=== PATIENT | female | born 1945 | race Caucasian/White ===

== ENCOUNTER 2017-10-18 07:40 | Day surgery (SDC) | payer MEDICARE, MEDICAID ==
[2017-10-14 14:12] LABS: BASOPHILS % (AUTO) 0.7 % (0-1); EOSINOPHILS # (AUTO) 0.1 X10'3 (0-0.9); EOSINOPHILS % (AUTO) 1.5 % (0-6); LYMPHOCYTES # (AUTO) 2.2 X10'3 (1.1-4.8); LYMPHOCYTES % (AUTO) 33.5 % (21-51); MEAN CORPUSCULAR HEMOGLOBIN 31.7 PG (27.0-31.0); MEAN CORPUSCULAR VOLUME 93.3 FL (78-98); MEAN PLATELET VOLUME 7.8 FL (7.4-10.4); MONOCYTES # (AUTO) 0.6 X10'3 (0-0.9); MONOCYTES % (AUTO) 9.3 % (2-12); NEUTROPHILS # (AUTO) 3.6 X10'3 (1.8-7.7); PRE OP HEMOGLOBIN 14.3 g/dL (12.0-16.0); PRE OP PLATELET COUNT 214 X10'3 (140-440); RED CELL DISTRIBUTION WIDTH 14.9 % (11.5-14.5)
[2017-10-14 14:21] LABS: ALBUMIN 3.8 G/DL (3.4-5.0); ALBUMIN/GLOBULIN RATIO 0.8 (1.1-1.5); ALKALINE PHOSPHATASE 73 IU/L (46-116); BLOOD UREA NITROGEN 12 MG/DL (7-18); BUN/CREATININE RATIO 14.1 (6.6-38.0); CALCIUM 8.5 MG/DL (8.5-10.1); CHLORIDE 98 MMOL/L (99-107); CREATININE 0.85 MG/DL (0.40-0.90); PRE OP ALT 65 U/L (30-65); PRE OP ANION GAP 6 (8-16); PRE OP AST 51 U/L (10-37); PRE OP BILIRUB, TOTAL 0.2 MG/DL (0.0-1.0); PRE OP GLUCOSE 96 MG/DL (70-104); PRE OP POTASSIUM 4.1 MMOL/L (3.4-5.1); PRE OP SODIUM 132 MMOL/L (135-145); TOTAL CARBON DIOXIDE 27.9 MMOL/L (24-32); TOTAL PROTEIN 8.3 G/DL (6.4-8.2); eGFR 66 ML/MIN
[2017-10-18] VITALS (7 sets, daily range): BP systolic 117–137; BP diastolic 76–89
[~2017-10-18] VITALS: Ht 154.9 cm; Wt 60.8 kg
[~2017-10-18 07:40] MED LIST: ALEN70TA3 PO; ATOR10TA87 PO; BUPIVAcaine/PF 2.5 mg/ml (0.25%) 30ml vial ONE; BUSP10TA11 PO; CETI-102 PO; CLON-527 PO; COL100C PO; CYCL1DRO EACHEYE; FLUT16SP2 BOTHNARES; FMLOS EACHEYE; GABA800T2 PO; HYDR-3972 PO; LUBI24CA5 PO; METF500T4 PO; MIRT15TA PO; NABU500T2 PO; PHEN100C12 PO; QUET200T30 PO; TOP100T PO; ceFAZolin inj. 1,000 MG in normal saline 100ml IV soln 100 ML IV ONE; famotidine 20mg tablet PO ONE; ringers solution, lacted 1,000 ML IV SCH
[2017-10-18] MEDS ORDERED: ringers solution, lacted 1,000 ML IV SCH (08:49)
[2017-10-18] MEDS ORDERED: proCHLORperazine 10 MG/2 ml inj IV PRN (08:50)
[2017-10-18] MEDS ORDERED: morphine 4 MG/ML inj SYRINge IV PRN ×2 (08:50)
[2017-10-18] MEDS ORDERED: meperidine/PF 50mg/ml syringe IV PRN ×3 (08:50)
[2017-10-18] MEDS ORDERED: LIDOcaine 0.5% (5mg/ml) 50ml vial ONE (08:59)
[2017-10-18] MEDS ORDERED: fentaNYL/PF 50MCG/1 ML 2ML syringe ONE (09:00)
[2017-10-18] MEDS ORDERED: midazolam 2 mg/2 ml injection ONE (09:02)
== END 2017-10-18 10:12 | disposition home or self-care (01) ==
LOC: PAS 07:40
PROVIDERS: ATTEND Orthopaedic Surgery Hand Surgery
DX: G56.02 Carpal tunnel syndrome, left upper limb (principal); Z79.899 Other long term (current) drug therapy; Z98.890 Other specified postprocedural states; Z87.891 Personal history of nicotine dependence; M19.90 Unspecified osteoarthritis, unspecified site; E11.9 Type 2 diabetes mellitus without complications; F41.8 Other specified anxiety disorders; Z85.828 Personal history of other malignant neoplasm of skin
CPT/HCPCS: 36415; 64721; 80053; 82948; 85025; A6222; A6449; J0690; J2001; J2250; J3010; J3490; J7030; J7120

== ENCOUNTER 2018-09-15 06:20 | Inpatient (IN) | payer MEDICARE, MEDICAID | END 2018-10-03 14:30 | disposition home or self-care (01) | LOC: ER 06:20 → ORTHO 4S 09-29 18:00 → ED HOLD 11:07 → PCU 3S 17:55 | DX: M48.56XA Collapsed vertebra, not elsewhere classified, lumbar region, initial encounter for fracture (principal); G92 Toxic encephalopathy; F20.2 Catatonic schizophrenia; E44.0 Moderate protein-calorie malnutrition; Z68.1 Body mass index [BMI] 19.9 or less, adult; N39.0 Urinary tract infection, site not specified; G40.909 Epilepsy, unspecified, not intractable, without status epilepticus; F03.90 Unspecified dementia, unspecified severity, without behavioral disturbance, psychotic disturbance, mood disturbance, and anxiety; I65.01 Occlusion and stenosis of right vertebral artery; F21 Schizotypal disorder; M06.9 Rheumatoid arthritis, unspecified; M48.00 Spinal stenosis, site unspecified ==

== ENCOUNTER 2019-05-09 15:18 | Emergency (ER) | payer MEDICARE, MEDICAID ==
[~2019-05-09] VITALS: Ht 154.9 cm; Wt 69.1 kg
[~2019-05-09 15:18] MED LIST changes: +ALEN35TA21 PO; -ALEN70TA3 PO; +ATOR10TA70 PO; -ATOR10TA87 PO; -BUPIVAcaine/PF 2.5 mg/ml (0.25%) 30ml vial ONE; -BUSP10TA11 PO; -CETI-102 PO; +CETI10TA14 PO; -CLON-527 PO; -COL100C PO; -CYCL1DRO EACHEYE; +CYCL1DRO2 EACHEYE; -FMLOS EACHEYE; -GABA800T2 PO; -HYDR-3972 PO; +LACT1CAP26 PO; +LIDO700A47 TP; +LISI-600 PO; -LUBI24CA5 PO; +METF-950 PO; -METF500T4 PO; -MIRT15TA PO; +MIRT15TA8 PO; -NABU500T2 PO; +NYSPWD TP; -PHEN100C12 PO; +PHEN125O3 PO; +PRAZ1CAP5 PO; -QUET200T30 PO; +QUET25TA34 PO; -TOP100T PO; +TOP25T PO; +[UNRECOGNIZED DRUG - CODE] PO; -ceFAZolin inj. 1,000 MG in normal saline 100ml IV soln 100 ML IV ONE; -famotidine 20mg tablet PO ONE; -ringers solution, lacted 1,000 ML IV SCH
[2019-05-09 16:08] VITALS: BP 154/90
== END 2019-05-09 16:10 | disposition home or self-care (01) ==
LOC: ER 15:22
DX: S10.83XA Contusion of other specified part of neck, initial encounter (principal); G89.29 Other chronic pain; R68.84 Jaw pain; E11.9 Type 2 diabetes mellitus without complications; Z90.49 Acquired absence of other specified parts of digestive tract; Z88.6 Allergy status to analgesic agent; Z79.899 Other long term (current) drug therapy; W06.XXXA Fall from bed, initial encounter; Y93.89 Activity, other specified; Y92.89 Other specified places as the place of occurrence of the external cause; Y99.9 Unspecified external cause status
CPT/HCPCS: 93005; 99283

== ENCOUNTER 2020-01-16 16:53 | Emergency (ER) | payer MEDICARE, MEDICAID ==
[~2020-01-16] VITALS: Ht 154.9 cm; Wt 77.5 kg
[2020-01-16] MEDS ORDERED: ondansetron 4mg rapidly disintigrating tab PO ONE (17:50)
[2020-01-16] MEDS ORDERED: HYDROcodone/acetaminophen 5mg/325mg tablet PO ONE (17:50)
[2020-01-16] MEDS ORDERED: ONDA4TAB6 PO (18:06)
[2020-01-16] MEDS ORDERED: HYDR-4383 PO (18:06)
[2020-01-16 18:16] VITALS: BP 147/82
== END 2020-01-16 18:17 | disposition home or self-care (01) ==
LOC: ER 16:53
DX: R07.81 Pleurodynia (principal); F03.90 Unspecified dementia, unspecified severity, without behavioral disturbance, psychotic disturbance, mood disturbance, and anxiety; E11.9 Type 2 diabetes mellitus without complications; F32.9 Major depressive disorder, single episode, unspecified; F20.9 Schizophrenia, unspecified; Z86.69 Personal history of other diseases of the nervous system and sense organs; Z90.49 Acquired absence of other specified parts of digestive tract; Z79.899 Other long term (current) drug therapy
CPT/HCPCS: 71046; 99284

== ENCOUNTER 2020-04-20 12:07 | Emergency (ER) | payer MEDICARE, MEDICAID ==
[~2020-04-20] VITALS: Ht 154.9 cm; Wt 76.0 kg
[~2020-04-20 12:07] MED LIST changes: +HYDR-4383 PO; +ONDA4TAB6 PO
[2020-04-20] MEDS ORDERED: normal saline 1000ML IV soln IVB ONE (14:05)
[2020-04-20] MEDS ORDERED: clindamycin phosphate inj 600 MG in normal saline 50ml IV soln 50 ML IV ONE (14:05)
[2020-04-20 14:35] LABS: BASOPHILS # (AUTO) 0.1 X10'3 (0-0.2); BASOPHILS % (AUTO) 0.6 % (0-1); EOSINOPHILS % (AUTO) 0.3 % (0-6); HEMATOCRIT 38.5 % (35.0-45.0); HEMOGLOBIN 12.8 g/dl (12.0-16.0); LYMPHOCYTES # (AUTO) 1.4 X10'3 (1.1-4.8); LYMPHOCYTES % (AUTO) 10.2 % (21-51); MEAN CORPUSCULAR HEMOGLOBIN 30.9 PG (27.0-31.0); MEAN CORPUSCULAR HGB CONC 33.2 g/dL (33.0-36.5); MEAN PLATELET VOLUME 8.1 FL (7.4-10.4); MONOCYTES # (AUTO) 1.5 X10'3 (0-0.9); MONOCYTES % (AUTO) 10.6 % (2-12); NEUTROPHILS # (AUTO) 10.8 X10'3 (1.8-7.7); NEUTROPHILS % (AUTO) 78.3 % (42-75); PLATELET COUNT 222 X10'3 (140-440); RED BLOOD COUNT 4.14 X10'6 (4.20-5.60); RED CELL DISTRIBUTION WIDTH 14.4 % (11.5-14.5); WHITE BLOOD COUNT 13.8 X10'3 (4.5-11.0)
[2020-04-20 14:49] LABS: ALANINE AMINOTRANSFERASE 57 U/L (12-78); ALBUMIN 3.5 G/DL (3.4-5.0); ALBUMIN/GLOBULIN RATIO 0.6 (1.1-1.5); ALKALINE PHOSPHATASE 128 IU/L (46-116); ANION GAP 11 (8-16); ASPARTATE AMINO TRANSFERASE 49 U/L (10-37); BILIRUBIN,TOTAL 0.7 MG/DL (0.1-1.0); BLOOD UREA NITROGEN 12 MG/DL (7-18); BUN/CREATININE RATIO 12.2 (6.6-38.0); CHLORIDE 96 MMOL/L (99-107); CREATININE 0.98 MG/DL (0.40-0.90); GLUCOSE 105 MG/DL (70-104); MAGNESIUM 2.1 MG/DL (1.5-2.4); POTASSIUM 3.4 MMOL/L (3.5-5.1); SODIUM 133 MMOL/L (135-145); TOTAL CARBON DIOXIDE 25.8 MMOL/L (24-32); TOTAL PROTEIN 8.9 G/DL (6.4-8.2); eGFR 56 ML/MIN
[2020-04-20] MEDS ORDERED: CLIN-97 PO (15:15)
[2020-04-20 15:42] VITALS: BP 134/83
[2020-04-22] MEDS ORDERED: ATOR40TA PO (21:53)
[2020-04-22] MEDS ORDERED: BUSP10TA11 PO (21:53)
[2020-04-22] MEDS ORDERED: MIRT45TA79 PO (21:53)
[2020-04-22] MEDS ORDERED: CYCL1DRO EACHEYE (21:53)
[2020-04-22] MEDS ORDERED: CITA20TA28 PO (21:53)
[2020-04-22] MEDS ORDERED: QUET-1 PO (21:53)
[2020-04-22] MEDS ORDERED: QUET25TA PO (21:53)
[2020-04-22] MEDS ORDERED: PHEN100C12 PO (21:53)
[2020-04-22] MEDS ORDERED: NABU500T2 PO (21:53)
[2020-04-22] MEDS ORDERED: ADV50100 IH (21:53)
[2020-04-22] MEDS ORDERED: GABA800T11 PO (21:53)
[2020-04-23] MEDS ORDERED: FLUT50DI NS (00:15)
[2020-04-23] MEDS ORDERED: FLUT16SP2 BOTHNARES (09:28)
== END 2020-04-20 15:54 | disposition home or self-care (01) ==
LOC: ER 12:07
DX: L03.313 Cellulitis of chest wall (principal); R51 Headache; E11.9 Type 2 diabetes mellitus without complications; F32.9 Major depressive disorder, single episode, unspecified; F20.9 Schizophrenia, unspecified; Z86.69 Personal history of other diseases of the nervous system and sense organs; Z90.49 Acquired absence of other specified parts of digestive tract; Z79.2 Long term (current) use of antibiotics; Z79.899 Other long term (current) drug therapy
CPT/HCPCS: 36415; 71045; 80053; 83605; 83735; 84145; 85025; 87040; 96365; 99284; J3490; J7030

== ENCOUNTER 2020-05-03 09:00 | Day surgery (SDC) | payer MEDICARE, MEDICAID ==
[~2020-05-03 09:00] MED LIST changes: -ATOR10TA70 PO; +ATOR40TA PO; +BUSP10TA11 PO; +CEPH250T PO; +CITA20TA28 PO; +GABA800T11 PO; -HYDR-4383 PO; -LIDO700A47 TP; -LISI-600 PO; +LISI10TA4 PO; -MIRT15TA8 PO; +MIRT45TA79 PO; +NABU500T2 PO; -NYSPWD TP; -ONDA4TAB6 PO; +PHEN100C12 PO; -PHEN125O3 PO; -PRAZ1CAP5 PO; +QUET25TA PO; -QUET25TA34 PO; -TOP25T PO; -[UNRECOGNIZED DRUG - CODE] PO
[2020-05-03] MEDS ORDERED: LIDOcaine 2% 5ml jelly ONE (09:40)
== END 2020-05-03 10:17 | disposition home or self-care (01) ==
LOC: WOUND CARE 09:00
PROVIDERS: ATTEND Registered Nurse General Practice
DX: N61.0 Mastitis without abscess (principal); T63.301A Toxic effect of unspecified spider venom, accidental (unintentional), initial encounter; E11.65 Type 2 diabetes mellitus with hyperglycemia; E78.5 Hyperlipidemia, unspecified; M81.0 Age-related osteoporosis without current pathological fracture; M19.90 Unspecified osteoarthritis, unspecified site; I10 Essential (primary) hypertension; G40.909 Epilepsy, unspecified, not intractable, without status epilepticus; F41.8 Other specified anxiety disorders; F32.9 Major depressive disorder, single episode, unspecified; F03.90 Unspecified dementia, unspecified severity, without behavioral disturbance, psychotic disturbance, mood disturbance, and anxiety; Z87.891 Personal history of nicotine dependence; Z79.2 Long term (current) use of antibiotics; Z79.899 Other long term (current) drug therapy; Z86.69 Personal history of other diseases of the nervous system and sense organs; Z90.49 Acquired absence of other specified parts of digestive tract; Y92.89 Other specified places as the place of occurrence of the external cause
CPT/HCPCS: 36416; 82948; 97597

== ENCOUNTER 2020-05-10 09:45 | Day surgery (SDC) | payer MEDICARE, MEDICAID ==
[~2020-05-10 09:45] MED LIST changes: -ALEN35TA21 PO; +ALEN35TA51 PO; +NABU-134 PO; -NABU500T2 PO
[2020-05-10] MEDS ORDERED: LIDOcaine 2% 5ml jelly ONE (10:03)
== END 2020-05-10 10:22 | disposition home or self-care (01) ==
LOC: WOUND CARE 09:45
PROVIDERS: ATTEND Nurse Practitioner
DX: L03.818 Cellulitis of other sites (principal); N61.0 Mastitis without abscess; E11.65 Type 2 diabetes mellitus with hyperglycemia; M81.0 Age-related osteoporosis without current pathological fracture; G40.909 Epilepsy, unspecified, not intractable, without status epilepticus; I10 Essential (primary) hypertension; E78.5 Hyperlipidemia, unspecified; M19.90 Unspecified osteoarthritis, unspecified site; F32.9 Major depressive disorder, single episode, unspecified; F41.8 Other specified anxiety disorders; F03.90 Unspecified dementia, unspecified severity, without behavioral disturbance, psychotic disturbance, mood disturbance, and anxiety; Z90.49 Acquired absence of other specified parts of digestive tract; Z79.899 Other long term (current) drug therapy; Z87.891 Personal history of nicotine dependence; Z86.69 Personal history of other diseases of the nervous system and sense organs; Z79.2 Long term (current) use of antibiotics; Z86.19 Personal history of other infectious and parasitic diseases
CPT/HCPCS: 36416; 82948; 97597

== ENCOUNTER 2020-05-17 09:52 | Day surgery (SDC) | payer MEDICARE, MEDICAID ==
[2020-05-17] MEDS ORDERED: LIDOcaine 2% 5ml jelly ONE (10:29)
== END 2020-05-17 11:30 | disposition home or self-care (01) ==
LOC: WOUND CARE 09:52
PROVIDERS: ATTEND Nurse Practitioner
DX: N61.0 Mastitis without abscess (principal); E11.65 Type 2 diabetes mellitus with hyperglycemia; L03.818 Cellulitis of other sites; M81.0 Age-related osteoporosis without current pathological fracture; G40.909 Epilepsy, unspecified, not intractable, without status epilepticus; I10 Essential (primary) hypertension; E78.5 Hyperlipidemia, unspecified; M19.90 Unspecified osteoarthritis, unspecified site; F32.9 Major depressive disorder, single episode, unspecified; F41.8 Other specified anxiety disorders; F03.90 Unspecified dementia, unspecified severity, without behavioral disturbance, psychotic disturbance, mood disturbance, and anxiety; F20.9 Schizophrenia, unspecified; Z90.49 Acquired absence of other specified parts of digestive tract; Z79.899 Other long term (current) drug therapy; Z87.891 Personal history of nicotine dependence; Z86.69 Personal history of other diseases of the nervous system and sense organs; Z79.2 Long term (current) use of antibiotics; Z86.19 Personal history of other infectious and parasitic diseases; Z79.84 Long term (current) use of oral hypoglycemic drugs
CPT/HCPCS: 36416; 82948; 97597

== ENCOUNTER 2020-05-24 10:42 | Outpatient (CLI) | payer MEDICARE, MEDICAID ==
[2020-05-24] MEDS ORDERED: LIDOcaine 2% 5ml jelly ONE (11:19)
== END 2020-05-24 23:59 | disposition home or self-care (01) ==
LOC: WOUND CARE 10:42
PROVIDERS: ATTEND Nurse Practitioner
DX: L03.818 Cellulitis of other sites (principal); N61.0 Mastitis without abscess; E11.65 Type 2 diabetes mellitus with hyperglycemia; M81.0 Age-related osteoporosis without current pathological fracture; G40.909 Epilepsy, unspecified, not intractable, without status epilepticus; I10 Essential (primary) hypertension; E78.5 Hyperlipidemia, unspecified; M19.90 Unspecified osteoarthritis, unspecified site; F32.9 Major depressive disorder, single episode, unspecified; F41.8 Other specified anxiety disorders; F03.90 Unspecified dementia, unspecified severity, without behavioral disturbance, psychotic disturbance, mood disturbance, and anxiety; Z90.49 Acquired absence of other specified parts of digestive tract; Z79.899 Other long term (current) drug therapy; Z87.891 Personal history of nicotine dependence; Z86.69 Personal history of other diseases of the nervous system and sense organs; Z79.2 Long term (current) use of antibiotics; Z86.19 Personal history of other infectious and parasitic diseases
CPT/HCPCS: 36416; 82948; 97597

== ENCOUNTER 2020-07-28 16:28 | Emergency (ER) | payer MEDICARE, MEDICAID ==
[~2020-07-28] VITALS: Ht 154.9 cm; Wt 73.0 kg
== END 2020-07-28 17:24 | disposition home or self-care (01) ==
LOC: ER 16:29
DX: J22 Unspecified acute lower respiratory infection (principal); R05 Cough; R09.89 Other specified symptoms and signs involving the circulatory and respiratory systems; R19.7 Diarrhea, unspecified; Z20.828 Contact with and (suspected) exposure to other viral communicable diseases; E11.9 Type 2 diabetes mellitus without complications; F32.9 Major depressive disorder, single episode, unspecified; F20.9 Schizophrenia, unspecified; Z86.69 Personal history of other diseases of the nervous system and sense organs; Z90.49 Acquired absence of other specified parts of digestive tract; Z79.2 Long term (current) use of antibiotics; Z79.899 Other long term (current) drug therapy
CPT/HCPCS: 36415; 87635; 99284

== ENCOUNTER 2021-04-06 13:10 | Outpatient (CLI) | payer MEDICARE, MEDICAID ==
[~2021-04-06 13:10] MED LIST changes: -ALEN35TA51 PO; +ALEN35TA53 PO; +LISI10TA27 PO; -LISI10TA4 PO; -NABU-134 PO; +NABU-139 PO
[2021-04-06] MEDS ORDERED: ATOR40TA71 PO (14:15)
[2021-04-06] MEDS ORDERED: ATOR40TA72 PO (14:15)
[2021-04-06] MEDS ORDERED: MIRT45TA79 PO (14:15)
[2021-04-06] MEDS ORDERED: QUET300T20 PO (14:15)
[2021-04-06] MEDS ORDERED: PHEN100C12 PO (14:15)
[2021-04-06] MEDS ORDERED: LISI20TA28 PO (14:15)
[2021-04-06] MEDS ORDERED: CITA20TA16 PO (14:15)
[2021-04-06] MEDS ORDERED: QUET50TA24 PO (14:15)
[2021-04-06] MEDS ORDERED: FLUT16SP BOTHNARES (14:15)
[2021-04-06] MEDS ORDERED: METF-436 PO (14:15)
[2021-04-06] MEDS ORDERED: CITA10TA14 PO (14:15)
[2021-04-06] MEDS ORDERED: ALEN35TA53 PO (14:15)
[2021-04-06] MEDS ORDERED: BUSP10TA10 PO (14:15)
[2021-04-06] MEDS ORDERED: GABA800T11 PO (14:15)
[2021-04-06] MEDS ORDERED: NABU-139 PO (14:15)
[2021-04-06 15:31] LABS: BASOPHILS # (AUTO) 0.1 X10'3 (0-0.2); EOSINOPHILS # (AUTO) 0.1 X10'3 (0-0.9); EOSINOPHILS % (AUTO) 1.7 % (0-6); LYMPHOCYTES # (AUTO) 1.9 X10'3 (1.1-4.8); LYMPHOCYTES % (AUTO) 31.9 % (21-51); MEAN CORPUSCULAR HEMOGLOBIN 31.1 PG (27.0-31.0); MEAN CORPUSCULAR HGB CONC 33.3 g/dL (33.0-36.5); MEAN CORPUSCULAR VOLUME 93.4 FL (78-98); MEAN PLATELET VOLUME 7.4 FL (7.4-10.4); MONOCYTES # (AUTO) 0.7 X10'3 (0-0.9); MONOCYTES % (AUTO) 12.5 % (2-12); NEUTROPHILS # (AUTO) 3.1 X10'3 (1.8-7.7); NEUTROPHILS % (AUTO) 52.9 % (42-75); PRE OP HEMATOCRIT 40.4 % (35.0-45.0); PRE OP HEMOGLOBIN 13.4 g/dL (12.0-16.0); PRE OP PLATELET COUNT 232 X10'3 (140-440); RED BLOOD COUNT 4.32 X10'6 (4.20-5.60); RED CELL DISTRIBUTION WIDTH 14.8 % (11.5-14.5)
[2021-04-06 15:46] LABS: ALBUMIN/GLOBULIN RATIO 0.8 (1.1-1.5); ALKALINE PHOSPHATASE 86 IU/L (46-116); BLOOD UREA NITROGEN 20 MG/DL (7-18); BUN/CREATININE RATIO 18.5 (6.6-38.0); CALCIUM 8.7 MG/DL (8.5-10.1); CHLORIDE 98 MMOL/L (99-107); CREATININE 1.08 MG/DL (0.40-0.90); PRE OP ALT 40 U/L (30-65); PRE OP ANION GAP 10 (8-16); PRE OP AST 38 U/L (10-37); PRE OP BILIRUB, TOTAL 0.3 MG/DL (0.0-1.0); PRE OP GLUCOSE 89 MG/DL (70-104); PRE OP POTASSIUM 4.4 MMOL/L (3.4-5.1); PRE OP SODIUM 134 MMOL/L (135-145); TOTAL CARBON DIOXIDE 25.7 MMOL/L (24-32); TOTAL PROTEIN 8.9 G/DL (6.4-8.2); eGFR 50 ML/MIN
[2021-04-06 15:48] LABS: HEMOGLOBIN A1C 5.3 % (4.5-6.2)
== END 2021-04-06 23:59 | disposition home or self-care (01) ==
LOC: PRE-OP 13:10 → EDSTATUS 05-12 12:00
PROVIDERS: ATTEND Orthopaedic Surgery
DX: Z01.818 Encounter for other preprocedural examination (principal); M17.11 Unilateral primary osteoarthritis, right knee; M54.32 Sciatica, left side; M19.012 Primary osteoarthritis, left shoulder; M19.011 Primary osteoarthritis, right shoulder; M19.071 Primary osteoarthritis, right ankle and foot; M19.072 Primary osteoarthritis, left ankle and foot; E11.9 Type 2 diabetes mellitus without complications; E78.00 Pure hypercholesterolemia, unspecified; I10 Essential (primary) hypertension; E03.9 Hypothyroidism, unspecified; M06.9 Rheumatoid arthritis, unspecified; Z79.84 Long term (current) use of oral hypoglycemic drugs; Z79.899 Other long term (current) drug therapy; Z20.822 Contact with and (suspected) exposure to COVID-19; Z88.8 Allergy status to other drugs, medicaments and biological substances; Z87.891 Personal history of nicotine dependence; Z82.61 Family history of arthritis; Z82.49 Family history of ischemic heart disease and other diseases of the circulatory system
CPT/HCPCS: 36415; 80053; 83036; 85025; 87081; U0003; U0005

== ENCOUNTER 2021-06-20 16:11 | Emergency (ER) | payer MEDICARE, MEDICAID ==
[~2021-06-20] VITALS: Ht 154.9 cm; Wt 74.5 kg
[~2021-06-20 16:11] MED LIST changes: -ATOR40TA PO; +ATOR40TA71 PO; -CEPH250T PO; +CITA10TA14 PO; -CITA20TA28 PO; -LACT1CAP26 PO; -LISI10TA27 PO; +LISI20TA28 PO; +METF-1203 PO; -METF-950 PO; -QUET25TA PO; +QUET300T20 PO; +QUET50TA24 PO
[2021-06-20 16:43] VITALS: BP 143/86
== END 2021-06-20 18:09 | disposition home or self-care (01) ==
LOC: ER 16:12
DX: J06.9 Acute upper respiratory infection, unspecified (principal); Z20.822 Contact with and (suspected) exposure to COVID-19; R05.9 Cough, unspecified; R43.8 Other disturbances of smell and taste; E11.9 Type 2 diabetes mellitus without complications; F32.9 Major depressive disorder, single episode, unspecified; F20.9 Schizophrenia, unspecified; Z86.69 Personal history of other diseases of the nervous system and sense organs; Z90.49 Acquired absence of other specified parts of digestive tract; Z79.899 Other long term (current) drug therapy
CPT/HCPCS: 87635; 99283; C9803

== ENCOUNTER 2022-04-13 19:49 | Emergency (ER) | payer MEDICARE, MEDICAID ==
[~2022-04-13] VITALS: Ht 154.9 cm; Wt 77.3 kg
[2022-04-13 20:18] VITALS: BP 155/94
[2022-04-13] MEDS ORDERED: HYDROcodone/acetaminophen 5mg/325mg tablet PO ONE (21:40)
[2022-04-13] MEDS ORDERED: cyclobenzaprine 10mg tablet PO ONE (21:40)
[2022-04-13] MEDS ORDERED: CYCL-1 PO (21:41)
[2022-04-13] MEDS ORDERED: LIDO700A32 TOP (21:41)
[2022-04-13] MEDS ORDERED: LIDOcaine 5% patch TP STA (21:42)
== END 2022-04-13 22:05 | disposition home or self-care (01) ==
LOC: ER 19:50
DX: G89.29 Other chronic pain (principal); M54.50 Low back pain, unspecified; M62.830 Muscle spasm of back; E11.9 Type 2 diabetes mellitus without complications; Z90.49 Acquired absence of other specified parts of digestive tract
CPT/HCPCS: 99284

== ENCOUNTER 2022-09-25 21:50 | Emergency (ER) | payer MEDICARE, MEDICAID ==
[~2022-09-25] VITALS: Ht 154.9 cm; Wt 72.3 kg
[~2022-09-25 21:50] MED LIST changes: +CYCL-1 PO; +LIDO700A32 TOP
[2022-09-25 22:16] LABS: BASOPHILS # (AUTO) 0.1 X10'3 (0-0.2); BASOPHILS % (AUTO) 1.2 % (0-1); EOSINOPHILS # (AUTO) 0.1 X10'3 (0-0.9); HEMATOCRIT 35.4 % (35.0-45.0); HEMOGLOBIN 11.8 g/dl (12.0-16.0); LYMPHOCYTES % (AUTO) 32.1 % (21-51); MEAN CORPUSCULAR HEMOGLOBIN 30.5 PG (27.0-31.0); MEAN CORPUSCULAR HGB CONC 33.4 g/dL (33.0-36.5); MEAN CORPUSCULAR VOLUME 91.3 FL (78-98); MEAN PLATELET VOLUME 6.9 FL (7.4-10.4); MONOCYTES # (AUTO) 0.9 X10'3 (0-0.9); MONOCYTES % (AUTO) 14.1 % (2-12); NEUTROPHILS # (AUTO) 3.2 X10'3 (1.8-7.7); NEUTROPHILS % (AUTO) 50.6 % (42-75); PLATELET COUNT 244 X10'3 (140-440); RED BLOOD COUNT 3.88 X10'6 (4.20-5.60); RED CELL DISTRIBUTION WIDTH 14.5 % (11.5-14.5); WHITE BLOOD COUNT 6.3 X10'3 (4.5-11.0)
[2022-09-25 22:29] LABS: ALANINE AMINOTRANSFERASE 41 U/L (12-78); ALBUMIN 3.5 G/DL (3.4-5.0); ALBUMIN/GLOBULIN RATIO 0.8 (1.1-1.5); ALKALINE PHOSPHATASE 97 IU/L (46-116); ANION GAP 8 (8-16); ASPARTATE AMINO TRANSFERASE 35 U/L (10-37); BILIRUBIN,TOTAL 0.2 MG/DL (0.1-1.0); BLOOD UREA NITROGEN 14 MG/DL (7-18); BUN/CREATININE RATIO 17.9 (6.6-38.0); CALCIUM 8.4 MG/DL (8.5-10.1); CHLORIDE 93 MMOL/L (99-107); CREATININE 0.78 MG/DL (0.40-0.90); GLUCOSE 126 MG/DL (70-104); LIPASE 178 U/L (73-393); POTASSIUM 4.3 MMOL/L (3.5-5.1); SODIUM 126 MMOL/L (135-145); TOTAL PROTEIN 7.7 G/DL (6.4-8.2); eGFR 72 ML/MIN
[2022-09-25] MEDS ORDERED: ondansetron/PF 4mg/2ml inj IV ONE (23:30)
[2022-09-25] MEDS ORDERED: normal saline 1000ML IV soln IVB ONE (23:30)
[2022-09-25] MEDS: morphine 4 MG/ML inj SYRINge IV PRN (23:44)
[2022-09-26 00:06] LABS: CLARITY,URINE CLEAR (Clear); COLOR,URINE STRAW (Yellow); GLUCOSE, URINE NEGATIVE (Neg); KETONES,URINE NEGATIVE (Neg); LEUKOCYTE ESTERASE ,URINE NEGATIVE (Neg); NITRITES, URINE NEGATIVE (Neg); OCCULT BLOOD,URINE TRACE-INTACT (Neg); PROTEIN,URINE NEGATIVE (Neg); UROBILINOGEN,URINE 0.2 E.U/dL (0.2-1.0)
[2022-09-26 00:09] LABS: UA COLLECTION TYPE FOLEY CATH
[2022-09-26 00:11] LABS: SQUAMOUS EPITHELIAL CELL,UR FEW /LPF (FEW)
[2022-09-26 00:12] LABS: BACTERIA,URINE NONE SEEN /HPF (Neg); RBC,URINE 0-2 /HPF (0-2); TRANSITIONAL EPI CELLS,URINE FEW /HPF; WBC,URINE NONE SEEN /HPF (0-4)
--- NOTE | 2022-09-26 00:13 | NUR ---
Patient to CT
--- NOTE | 2022-09-26 03:00 | NUR ---
breaking primary rn for lunch provided patient with eye mask and ear plugs
[2022-09-26] MEDS ORDERED: MAGN296S89 PO (03:46)
[2022-09-26] MEDS ORDERED: LACT10SO3 PO (03:46)
[2022-09-26] MEDS ORDERED: morphine 4 MG/ML inj SYRINge IV ONE (05:10)
[2022-09-26] MEDS ORDERED: ondansetron/PF 4mg/2ml inj IV ONE (05:10)
[2022-09-26] MEDS: morphine 4 MG/ML inj SYRINge IV PRN (05:16)
[2022-09-26 05:23] VITALS: BP 104/51
--- NOTE | 2022-09-26 05:27 | NUR ---
Per Dr. Cavazos give Morphine 2mg and Zofran 4mg.
== END 2022-09-26 05:37 | disposition home or self-care (01) ==
LOC: ER 21:50
DX: K59.00 Constipation, unspecified (principal); I10 Essential (primary) hypertension; G89.29 Other chronic pain; M54.9 Dorsalgia, unspecified; F31.9 Bipolar disorder, unspecified; F20.9 Schizophrenia, unspecified; E11.9 Type 2 diabetes mellitus without complications; Z79.899 Other long term (current) drug therapy; Z79.1 Long term (current) use of non-steroidal anti-inflammatories (NSAID); Z79.2 Long term (current) use of antibiotics
CPT/HCPCS: 36415; 72131; 74176; 80053; 81001; 83690; 85025; 96361; 96374; 96375; 96376; 99285; J2270; J2405; J7030; 30901; 51702; A4353

== ENCOUNTER 2023-11-19 22:34 | Inpatient (IN) | payer MEDICARE, MEDICAID ==
[~2023-11-19] VITALS: Ht 154.9 cm; Wt 61.3 kg
[~2023-11-19 22:34] MED LIST changes: +LACT10SO3 PO; +MAGN296S89 PO
[2023-11-20 00:41] LABS: BASOPHILS # (AUTO) 0.1 X10'3 (0-0.2); BASOPHILS % (AUTO) 0.8 % (0-1); EOSINOPHILS # (AUTO) 0.2 X10'3 (0-0.9); EOSINOPHILS % (AUTO) 2.5 % (0-6); HEMATOCRIT 32.6 % (35.0-45.0); HEMOGLOBIN 11.4 g/dl (12.0-16.0); LYMPHOCYTES # (AUTO) 1.7 X10'3 (1.1-4.8); MEAN CORPUSCULAR HEMOGLOBIN 31.9 PG (27.0-31.0); MEAN CORPUSCULAR HGB CONC 34.9 g/dL (33.0-36.5); MEAN CORPUSCULAR VOLUME 91.4 FL (78-98); MEAN PLATELET VOLUME 6.5 FL (7.4-10.4); MONOCYTES # (AUTO) 1.1 X10'3 (0-0.9); MONOCYTES % (AUTO) 15.3 % (2-12); NEUTROPHILS # (AUTO) 3.9 X10'3 (1.8-7.7); NEUTROPHILS % (AUTO) 56.4 % (42-75); PLATELET COUNT 241 X10'3 (140-440); RED BLOOD COUNT 3.57 X10'6 (4.20-5.60); RED CELL DISTRIBUTION WIDTH 14.5 % (11.5-14.5)
[2023-11-20] MEDS: normal saline 1000ML IV soln IVB ONE (00:51)
[2023-11-20] MEDS: TETanus/Pertussis (Acell)/Diphther VAC/PF (Tdap-Adult) 0.5ml syringe IMVAC ONE (00:52)
[2023-11-20 00:56] LABS: ALANINE AMINOTRANSFERASE 32 U/L (12-78); ALBUMIN 2.9 G/DL (3.4-5.0); ALBUMIN/GLOBULIN RATIO 0.6 (1.1-1.5); ALKALINE PHOSPHATASE 94 IU/L (46-116); ANION GAP 5 (8-16); ASPARTATE AMINO TRANSFERASE 32 U/L (10-37); BILIRUBIN,TOTAL 0.2 MG/DL (0.1-1.0); BLOOD UREA NITROGEN 10 MG/DL (7-18); BUN/CREATININE RATIO 12.5 (10.0-20.0); CALCIUM 8.2 MG/DL (8.5-10.1); CHLORIDE 93 MMOL/L (99-107); GLUCOSE 93 MG/DL (70-104); POTASSIUM 3.7 MMOL/L (3.5-5.1); SODIUM 127 MMOL/L (135-145); TOTAL CARBON DIOXIDE 28.8 MMOL/L (24-32); TOTAL PROTEIN 7.8 G/DL (6.4-8.2); eCRCL 45 ML/MIN; eGFR 70 ML/MIN
[2023-11-20 00:59] LABS: ETHANOL < 10 MG/DL (<10)
[2023-11-20] MEDS: ceFAZolin/D5W- 1GM premix 50 ML IV ONE (01:03)
[2023-11-20 01:12] LABS: TOTAL CELLS COUNTED 100
[2023-11-20 01:23] LABS: PLATELET ESTIMATE NORMAL
[2023-11-20 01:44] LABS: BILIRUBIN,URINE NEGATIVE (Neg); CLARITY,URINE CLEAR (Clear); COLOR,URINE YELLOW (Yellow); GLUCOSE, URINE NEGATIVE (Neg); KETONES,URINE NEGATIVE (Neg); LEUKOCYTE ESTERASE ,URINE NEGATIVE (Neg); NITRITES, URINE NEGATIVE (Neg); OCCULT BLOOD,URINE NEGATIVE (Neg); PROTEIN,URINE NEGATIVE (Neg); UROBILINOGEN,URINE 0.2 E.U/dL (0.2-1.0)
[2023-11-20 01:57] LABS: UA COLLECTION TYPE CLN CATCH MIDSTREAM
[2023-11-20 02:12] LABS: URINE AMPHETAMINE SCREEN NEGATIVE (Neg); URINE BARBITUATE SCREEN NEGATIVE (Neg); URINE BENZODIAZEPINES SCREEN NEGATIVE (Neg); URINE CANNABINOID SCREEN NEGATIVE (Neg); URINE COCAINE SCREEN NEGATIVE (Neg); URINE METHADONE SCREEN NEGATIVE (Neg); URINE OPIATE SCREEN NEGATIVE (Neg); URINE PHENCYCLIDINE SCREEN NEGATIVE (Neg)
[2023-11-20] MEDS: normal saline 1000ml 1,000 ML IV SCH (03:10)
[2023-11-20] MEDS ORDERED: mag hydrox/Alum hydrox/simeth 30ml oral suspension PO PRN (03:10)
[2023-11-20] MEDS ORDERED: magnesium hydroxide 30ml (MOM) UD suspension PO PRN (03:10)
[2023-11-20] MEDS ORDERED: magnesium Cl slow-release 64mg tablet PO PRN (03:10)
[2023-11-20] MEDS ORDERED: magnesium 4gm in 100ml NS 100 ML IV PRN (03:10)
[2023-11-20] MEDS ORDERED: potassium Cl 40MEQ/1/2NS 520ml 520 ML IV PRN (03:10)
[2023-11-20] MEDS ORDERED: magnesium 2GM in 50ml NS 50 ML IV PRN (03:10)
[2023-11-20] MEDS ORDERED: acetaminophen 325mg tablet PO PRN (03:10)
[2023-11-20] MEDS ORDERED: potassium Cl 20 mEq SR tablet PO PRN ×2 (03:10)
[2023-11-20 03:42] LABS: HEMOGLOBIN A1C 6.1 % (4.5-6.2)
[2023-11-20 03:49] LABS: OSMOLALITY UA 138 MOSM/K (50-1400)
[2023-11-20 04:00] LABS: SODIUM,URINE RANDOM 17 MEQ/L
[2023-11-20] MEDS: K and/or MAG REPLACEMENT MC SCH (07:41)
[2023-11-20] MEDS: ondansetron/PF 4mg/2ml inj IV PRN (08:20)
[2023-11-20] MEDS: morphine 2 MG/ML inj. syringe IV PRN (08:20)
[2023-11-20] MEDS: docusate sod 100mg capsule PO SCH (08:20)
[2023-11-20] MEDS ORDERED: non-formulary drug (Alendronate Sodium 1 TAB) PO SCH (17:55)
[2023-11-20] MEDS ORDERED: QUEtiapine 25mg tablet PO PRN (17:55)
[2023-11-20] MEDS: lisinopril 20mg tablet PO SCH (18:06)
[2023-11-20] MEDS: CITALOpram 10mg tablet PO SCH (18:07)
[2023-11-20] MEDS: enoxaparin 40mg/0.4ml syringe SQ SCH (19:38)
[2023-11-20] MEDS: quetiapine fumarate ER 300mg tablet PO ONE (19:39)
[2023-11-20] MEDS: mirtazapine 15mg tablet PO ONE (19:39)
[2023-11-20] MEDS: busPIRone 5mg tablet PO SCH (21:11)
[2023-11-20] MEDS: atorvastatin 20mg tablet PO SCH (21:11)
[2023-11-20] MEDS: phenytoin sod ER 100mg capsule PO SCH (21:39)
[2023-11-20 23:00] VITALS: BP 191/89; PULSE 103; RESP 14; TEMP 98.3; O2SAT 96
[2023-11-21 00:12] VITALS: RESP 16; O2SAT 96
[2023-11-21] MEDS: gabapentin 400mg capsule PO SCH (00:27)
[2023-11-21 06:38] VITALS: BP 94/44; PULSE 84; RESP 16; TEMP 97.3; O2SAT 92
[2023-11-21 07:31] LABS: BASOPHILS % (AUTO) 0.6 % (0-1); EOSINOPHILS # (AUTO) 0.1 X10'3 (0-0.9); EOSINOPHILS % (AUTO) 1.3 % (0-6); HEMATOCRIT 31.5 % (35.0-45.0); HEMOGLOBIN 10.8 g/dl (12.0-16.0); LYMPHOCYTES # (AUTO) 1.9 X10'3 (1.1-4.8); LYMPHOCYTES % (AUTO) 26.1 % (21-51); MEAN CORPUSCULAR HEMOGLOBIN 31.4 PG (27.0-31.0); MEAN CORPUSCULAR HGB CONC 34.3 g/dL (33.0-36.5); MEAN CORPUSCULAR VOLUME 91.6 FL (78-98); MEAN PLATELET VOLUME 7.4 FL (7.4-10.4); MONOCYTES # (AUTO) 1.2 X10'3 (0-0.9); PLATELET COUNT 237 X10'3 (140-440); RED BLOOD COUNT 3.44 X10'6 (4.20-5.60); RED CELL DISTRIBUTION WIDTH 14.3 % (11.5-14.5); WHITE BLOOD COUNT 7.2 X10'3 (4.5-11.0)
[2023-11-21 07:49] LABS: ALBUMIN 2.5 G/DL (3.4-5.0); ANION GAP 6 (8-16); BLOOD UREA NITROGEN 8 MG/DL (7-18); BUN/CREATININE RATIO 11.9 (10.0-20.0); CALCIUM 7.8 MG/DL (8.5-10.1); CHLORIDE 99 MMOL/L (99-107); CREATININE 0.67 MG/DL (0.40-0.90); GLUCOSE 90 MG/DL (70-104); SODIUM 132 MMOL/L (135-145); TOTAL CARBON DIOXIDE 26.9 MMOL/L (24-32); eCRCL 54 ML/MIN; eGFR 86 ML/MIN
[2023-11-21 08:00] VITALS: BP_SYST 126; BP_SYST 92; BP_SYST 99; BP_DIAS 55; BP_DIAS 57; BP_DIAS 67; PULSE 80; PULSE 82; PULSE 85; RESP 16; O2SAT 92
[2023-11-21] MEDS: fluticasone nasal spray 16GM bottle NS SCH (08:00)
[2023-11-21 08:55] LABS: PLATELET ESTIMATE NORMAL; TOTAL CELLS COUNTED 100
[2023-11-21 10:00] VITALS: BP 126/55; PULSE 71; RESP 16; TEMP 98.6; O2SAT 96
[2023-11-21 10:54] VITALS: RESP 16; O2SAT 96
[2023-11-21 11:53] VITALS: RESP 17
[2023-11-21] MEDS ORDERED: mirtazapine 15mg tablet PO SCH (21:00)
[2023-11-21] MEDS ORDERED: quetiapine fumarate ER 300mg tablet PO SCH (21:00)
== END 2023-11-21 12:45 | disposition home health service (06) | DRG 605 ==
LOC: ER 22:35 → UNDOADMIN 11-20 03:17 → ED HOLD 11-20 03:17 → EDBEDREQ 11-20 20:27 → ORTHO 4S 11-20 20:43
PROVIDERS: ADMIT Internal Medicine Critical Care Medicine; ATTEND Internal Medicine
DX: S01.01XA Laceration without foreign body of scalp, initial encounter (principal); E87.1 Hypo-osmolality and hyponatremia; E11.9 Type 2 diabetes mellitus without complications; F20.9 Schizophrenia, unspecified; F31.9 Bipolar disorder, unspecified; F41.9 Anxiety disorder, unspecified; M62.838 Other muscle spasm; K59.00 Constipation, unspecified; I10 Essential (primary) hypertension; G89.29 Other chronic pain; E78.5 Hyperlipidemia, unspecified; F03.90 Unspecified dementia, unspecified severity, without behavioral disturbance, psychotic disturbance, mood disturbance, and anxiety; G40.909 Epilepsy, unspecified, not intractable, without status epilepticus; W18.39XA Other fall on same level, initial encounter; M54.9 Dorsalgia, unspecified; Z79.84 Long term (current) use of oral hypoglycemic drugs; Z79.899 Other long term (current) drug therapy; Z90.49 Acquired absence of other specified parts of digestive tract; Y93.89 Activity, other specified; Y92.89 Other specified places as the place of occurrence of the external cause; Y99.8 Other external cause status
CPT/HCPCS: 36415; 70450; 71045; 72125; 80048; 80053; 80305; 80320; 81003; 82948; 83036; 83930; 83935; 84300; 84484; 85007; 85025; 87081; 90471; 90715; 93005; 96365; 97161; 97530; 99285; A6449; G0378; J0690; J1650; J2270; J2405; J7030

== ENCOUNTER 2024-02-06 19:30 | Emergency (ER) | payer MEDICARE, MEDICAID ==
[~2024-02-06] VITALS: Ht 157.5 cm; Wt 57.7 kg
[~2024-02-06 19:30] MED LIST changes: -CYCL-1 PO
[2024-02-06 20:03] LABS: BASOPHILS % (AUTO) 0.5 % (0-1); EOSINOPHILS % (AUTO) 0.1 % (0-6); HEMATOCRIT 36.9 % (35.0-45.0); HEMOGLOBIN 12.7 g/dl (12.0-16.0); LYMPHOCYTES # (AUTO) 1.2 X10'3 (1.1-4.8); LYMPHOCYTES % (AUTO) 11.4 % (21-51); MEAN CORPUSCULAR HEMOGLOBIN 31.5 PG (27.0-31.0); MEAN CORPUSCULAR HGB CONC 34.4 g/dL (33.0-36.5); MEAN CORPUSCULAR VOLUME 91.4 FL (78-98); MEAN PLATELET VOLUME 6.8 FL (7.4-10.4); MONOCYTES # (AUTO) 0.9 X10'3 (0-0.9); MONOCYTES % (AUTO) 8.6 % (2-12); NEUTROPHILS # (AUTO) 8.3 X10'3 (1.8-7.7); NEUTROPHILS % (AUTO) 79.4 % (42-75); PLATELET COUNT 242 X10'3 (140-440); RED BLOOD COUNT 4.04 X10'6 (4.20-5.60); RED CELL DISTRIBUTION WIDTH 15.1 % (11.5-14.5); WHITE BLOOD COUNT 10.4 X10'3 (4.5-11.0)
[2024-02-06 20:19] LABS: ALANINE AMINOTRANSFERASE 48 U/L (12-78); ALBUMIN 3.4 G/DL (3.4-5.0); ALBUMIN/GLOBULIN RATIO 0.7 (1.1-1.5); ALKALINE PHOSPHATASE 94 IU/L (46-116); ANION GAP 11 (8-16); ASPARTATE AMINO TRANSFERASE 51 U/L (10-37); BILIRUBIN,TOTAL 0.5 MG/DL (0.1-1.0); BLOOD UREA NITROGEN 14 MG/DL (7-18); BUN/CREATININE RATIO 18.9 (10.0-20.0); CALCIUM 8.7 MG/DL (8.5-10.1); CHLORIDE 88 MMOL/L (99-107); CREATININE 0.74 MG/DL (0.40-0.90); GLUCOSE 132 MG/DL (70-104); SODIUM 123 MMOL/L (135-145); TOTAL CARBON DIOXIDE 24.1 MMOL/L (24-32); TOTAL PROTEIN 8.5 G/DL (6.4-8.2); eCRCL 51 ML/MIN; eGFR 76 ML/MIN
[2024-02-06 22:37] LABS: BILIRUBIN,URINE NEGATIVE (Neg); CLARITY,URINE SLIGHTLY CLOUDY (Clear); COLOR,URINE YELLOW (Yellow); GLUCOSE, URINE NEGATIVE (Neg); KETONES,URINE 40 mg/dl (Neg); LEUKOCYTE ESTERASE ,URINE NEGATIVE (Neg); NITRITES, URINE NEGATIVE (Neg); OCCULT BLOOD,URINE SMALL (Neg); PROTEIN,URINE 100 mg/dl (Neg); UROBILINOGEN,URINE 0.2 E.U/dL (0.2-1.0)
[2024-02-06 22:42] LABS: UA COLLECTION TYPE URINAL
[2024-02-06 22:47] LABS: BACTERIA,URINE 1+ /HPF (Neg); SQUAMOUS EPITHELIAL CELL,UR FEW /LPF (FEW); WBC,URINE 0-4 /HPF (0-4)
[2024-02-06 22:48] LABS: MUCUS STRANDS MODERATE /LPF (Neg); RENAL CELLS, URINE FEW /HPF; TRANSITIONAL EPI CELLS,URINE FEW /HPF
[2024-02-06 22:50] LABS: COARSE GRANULAR CAST 0-3 /LPF (NEGATIVE); STARCH,URINE FEW /HPF (NEGATIVE)
[2024-02-06 22:51] LABS: URINE AMPHETAMINE SCREEN NEGATIVE (Neg); URINE BARBITUATE SCREEN NEGATIVE (Neg); URINE BENZODIAZEPINES SCREEN NEGATIVE (Neg); URINE CANNABINOID SCREEN NEGATIVE (Neg); URINE COCAINE SCREEN NEGATIVE (Neg); URINE METHADONE SCREEN NEGATIVE (Neg); URINE OPIATE SCREEN POSITIVE (Neg); URINE PHENCYCLIDINE SCREEN NEGATIVE (Neg)
[2024-02-06] MEDS: acetaminophen 325mg tablet PO ONE (23:59)
[2024-02-07] MEDS: lisinopril 10 MG tablet PO ONE
[2024-02-07 08:01] VITALS: BP 164/85; PULSE 99; RESP 15; TEMP 98.3; O2SAT 98
== END 2024-02-07 08:05 | disposition home or self-care (01) ==
LOC: ER 19:30
DX: R40.4 Transient alteration of awareness (principal); I10 Essential (primary) hypertension; Z79.899 Other long term (current) drug therapy; Z90.49 Acquired absence of other specified parts of digestive tract
CPT/HCPCS: 36415; 71045; 80053; 80305; 80329; 81001; 82948; 85025; 99285

== ENCOUNTER 2024-06-26 19:35 | Emergency (ER) | payer MEDICARE, MEDICAID ==
[~2024-06-26] VITALS: Ht 156.2 cm; Wt 57.2 kg
[~2024-06-26 19:35] MED LIST changes: +GABA-1555 PO; -GABA800T11 PO; +LACT-373 PO; -LACT10SO3 PO
[2024-06-26] MEDS: ondansetron 4mg rapidly disintigrating tab PO ONE (21:08)
[2024-06-26] MEDS: HYDROcodone/acetaminophen 10/325mg tab PO ONE (21:08)
[2024-06-26] MEDS ORDERED: metoprolol tartrate 50mg tablet PO ONE (21:55)
[2024-06-26] MEDS: metoprolol tartrate 25mg tablet PO ONE (22:15)
[2024-06-26 22:22] VITALS: BP 154/82; PULSE 74; RESP 16; O2SAT 98
== END 2024-06-26 22:31 | disposition home or self-care (01) ==
LOC: ER 19:35
DX: S09.90XA Unspecified injury of head, initial encounter (principal); M54.50 Low back pain, unspecified; F03.92 Unspecified dementia, unspecified severity, with psychotic disturbance; I10 Essential (primary) hypertension; E11.9 Type 2 diabetes mellitus without complications; F20.9 Schizophrenia, unspecified; G89.29 Other chronic pain; Z79.899 Other long term (current) drug therapy; Z90.49 Acquired absence of other specified parts of digestive tract; W19.XXXA Unspecified fall, initial encounter; Y93.89 Activity, other specified; Y92.89 Other specified places as the place of occurrence of the external cause; Y99.8 Other external cause status
CPT/HCPCS: 70450; 72131; 99285

== ENCOUNTER 2024-07-15 06:18 | Inpatient (IN) | payer MEDICARE, MEDICAID ==
[~2024-07-15] VITALS: Ht 154.9 cm; Wt 61.0 kg
[2024-07-15] MEDS: normal saline 1000ml 1,000 ML IV ONE (06:57)
[2024-07-15] MEDS: LORazepam 2 mg/ml vial IV ONE (07:02)
[2024-07-15] MEDS: HYDROcodone/acetaminophen 10/325mg tab PO ONE (07:26)
[2024-07-15 07:29] LABS: BASOPHILS % (AUTO) 0.9 % (0-1); EOSINOPHILS # (AUTO) 0.1 X10'3 (0-0.9); EOSINOPHILS % (AUTO) 1.5 % (0-6); HEMATOCRIT 33.7 % (35.0-45.0); HEMOGLOBIN 11.5 g/dl (12.0-16.0); LYMPHOCYTES # (AUTO) 1.7 X10'3 (1.1-4.8); LYMPHOCYTES % (AUTO) 36.1 % (21-51); MEAN CORPUSCULAR HEMOGLOBIN 31.1 PG (27.0-31.0); MEAN CORPUSCULAR HGB CONC 34.2 g/dL (33.0-36.5); MEAN PLATELET VOLUME 7.5 FL (7.4-10.4); MONOCYTES # (AUTO) 0.7 X10'3 (0-0.9); MONOCYTES % (AUTO) 14.9 % (2-12); NEUTROPHILS # (AUTO) 2.1 X10'3 (1.8-7.7); NEUTROPHILS % (AUTO) 46.6 % (42-75); PLATELET COUNT 158 X10'3 (140-440); RED CELL DISTRIBUTION WIDTH 15.2 % (11.5-14.5); WHITE BLOOD COUNT 4.6 X10'3 (4.5-11.0)
[2024-07-15 08:16] LABS: ALBUMIN 3.8 G/DL (3.4-5.0); ANION GAP 8 (8-16); BLOOD UREA NITROGEN 21 MG/DL (7-18); BUN/CREATININE RATIO 20.6 (10.0-20.0); CALCIUM 8.4 MG/DL (8.5-10.1); CHLORIDE 86 MMOL/L (99-107); CREATININE 1.02 MG/DL (0.40-0.90); GLUCOSE 108 MG/DL (70-104); LIPASE 71 U/L (16-77); MAGNESIUM 1.7 MG/DL (1.5-2.4); TOTAL CARBON DIOXIDE 25.2 MMOL/L (24-32); eCRCL 35 ML/MIN; eGFR 53 ML/MIN
[2024-07-15 08:37] LABS: POTASSIUM 3.4 MMOL/L (3.5-5.1)
[2024-07-15 08:44] LABS: SODIUM 119 MMOL/L (135-145)
[2024-07-15] MEDS ORDERED: potassium Cl 20 mEq SR tablet PO PRN (11:55)
[2024-07-15] MEDS ORDERED: potassium Cl 40MEQ/1/2NS 520ml 520 ML IV PRN (11:55)
[2024-07-15] MEDS ORDERED: acetaminophen 325mg tablet PO PRN ×2 (11:55)
[2024-07-15] MEDS ORDERED: bisacodyl 10mg suppository rectal RC PRN (11:55)
[2024-07-15] MEDS ORDERED: magnesium sulf-water 2g/50mL 50 ML IV PRN (11:55)
[2024-07-15] MEDS ORDERED: magnesium sulf-water 4G/100mL 100 ML IV PRN (11:55)
[2024-07-15] MEDS: HYDROcodone/acetaminophen 10/325mg tab PO PRN (14:10)
[2024-07-15 15:47] LABS: ALBUMIN 4.1 G/DL (3.4-5.0); ANION GAP 5 (8-16); BLOOD UREA NITROGEN 16 MG/DL (7-18); CHLORIDE 92 MMOL/L (99-107); CREATININE 0.94 MG/DL (0.40-0.90); GLUCOSE 99 MG/DL (70-104); POTASSIUM 3.5 MMOL/L (3.5-5.1); SODIUM 124 MMOL/L (135-145); TOTAL CARBON DIOXIDE 27.5 MMOL/L (24-32); eCRCL 38 ML/MIN; eGFR 58 ML/MIN
[2024-07-15 15:53] LABS: OSMOLALITY 275 MOSM/K (280-300)
[2024-07-15] MEDS: K and/or MAG REPLACEMENT MC SCH (20:00)
[2024-07-15] MEDS: docusate sod 100mg capsule PO SCH (20:00)
[2024-07-15 22:00] VITALS: BP 156/69; PULSE 85; RESP 16; TEMP 98.2; O2SAT 95
[2024-07-15] MEDS ORDERED: hydrALAZINE 20mg/ml inj. IV PRN (22:00)
[2024-07-15] MEDS: enoxaparin 40mg/0.4ml syringe SQ SCH (23:10)
[2024-07-15] MEDS: normal saline 1000ml 1,000 ML IV SCH (23:12)
[2024-07-15] MEDS ORDERED: DENO60DI SUBCUT (23:50)
[2024-07-15] MEDS ORDERED: CITA20TA17 PO (23:58)
[2024-07-16] MEDS ORDERED: LISI1TAB51 PO (00:05)
[2024-07-16 05:25] LABS: BASOPHILS # (AUTO) 0.1 X10'3 (0-0.2); EOSINOPHILS # (AUTO) 0.1 X10'3 (0-0.9); EOSINOPHILS % (AUTO) 1.1 % (0-6); HEMATOCRIT 34.9 % (35.0-45.0); HEMOGLOBIN 12.1 g/dl (12.0-16.0); LYMPHOCYTES # (AUTO) 1.7 X10'3 (1.1-4.8); LYMPHOCYTES % (AUTO) 27.8 % (21-51); MEAN CORPUSCULAR HEMOGLOBIN 31.7 PG (27.0-31.0); MEAN CORPUSCULAR HGB CONC 34.8 g/dL (33.0-36.5); MEAN CORPUSCULAR VOLUME 91.3 FL (78-98); MEAN PLATELET VOLUME 7.3 FL (7.4-10.4); MONOCYTES # (AUTO) 0.9 X10'3 (0-0.9); MONOCYTES % (AUTO) 14.4 % (2-12); NEUTROPHILS # (AUTO) 3.4 X10'3 (1.8-7.7); NEUTROPHILS % (AUTO) 55.7 % (42-75); PLATELET COUNT 214 X10'3 (140-440); RED BLOOD COUNT 3.82 X10'6 (4.20-5.60); RED CELL DISTRIBUTION WIDTH 15.4 % (11.5-14.5)
[2024-07-16 05:37] LABS: HEMOGLOBIN A1C 5.8 % (4.5-6.2)
[2024-07-16 05:54] LABS: ALANINE AMINOTRANSFERASE 19 U/L (12-78); ALBUMIN 3.5 G/DL (3.4-5.0); ALBUMIN/GLOBULIN RATIO 0.8 (1.1-1.5); ALKALINE PHOSPHATASE 53 IU/L (46-116); ANION GAP 9 (8-16); ASPARTATE AMINO TRANSFERASE 21 U/L (10-37); BILIRUBIN,TOTAL 0.5 MG/DL (0.1-1.0); BLOOD UREA NITROGEN 15 MG/DL (7-18); BUN/CREATININE RATIO 21.4 (10.0-20.0); CALCIUM 8.7 MG/DL (8.5-10.1); CHLORIDE 96 MMOL/L (99-107); GLUCOSE 107 MG/DL (70-104); MAGNESIUM 1.8 MG/DL (1.5-2.4); POTASSIUM 3.2 MMOL/L (3.5-5.1); SODIUM 131 MMOL/L (135-145); TOTAL CARBON DIOXIDE 26.2 MMOL/L (24-32); TOTAL PROTEIN 7.7 G/DL (6.4-8.2); eCRCL 51 ML/MIN; eGFR 81 ML/MIN
[2024-07-16 06:00] VITALS: BP 169/86; PULSE 83; RESP 15; TEMP 98.9; O2SAT 94
[2024-07-16] MEDS: potassium Cl 20 mEq SR tablet PO PRN (08:50)
[2024-07-16] MEDS: HYDROcodone/acetaminophen 5mg/325mg tablet PO PRN (09:42)
[2024-07-16 10:00] VITALS: BP 154/72; PULSE 80; RESP 14; TEMP 97.8; O2SAT 94
[2024-07-16] MEDS ORDERED: HYDR-3964 PO (15:46)
[2024-07-16] MEDS ORDERED: glucagon, human recombinant 1mg kit SUBCUT PRN (16:15)
[2024-07-16] MEDS ORDERED: cetirizine 10mg tablet PO PRN (16:15)
[2024-07-16] MEDS: magnesium citrate 296ml oral solution PO ONE (16:15)
[2024-07-16] MEDS ORDERED: dextrose 50%-water 50ml dispensing syringe IV PRN ×2 (16:15)
[2024-07-16] MEDS ORDERED: DEXTROSE 15 GM of carb/4 tabs (each vial/BOTTLE has 4 tablets) PO PRN ×2 (16:15)
[2024-07-16] MEDS: INSULIN LISPRO 100 UNIT/ML INSULN.PEN MULTI-DOSE SQ SCH (17:00)
[2024-07-16 18:00] VITALS: BP 172/97; PULSE 104; RESP 18; TEMP 97.9; O2SAT 98
[2024-07-16] MEDS: cycloSPORINE 0.05% ophthalmic emulsion EACHEYE SCH (20:31)
[2024-07-16] MEDS: mirtazapine 15mg tablet PO SCH (20:32)
[2024-07-16] MEDS: busPIRone 5mg tablet PO SCH (20:32)
[2024-07-16] MEDS: citalopram 20mg tablet PO SCH (20:32)
[2024-07-16] MEDS: atorvastatin 20mg tablet PO SCH (20:32)
[2024-07-16] MEDS: quetiapine 100mg tablet PO SCH (20:33)
[2024-07-16] MEDS: mag hydrox/Alum hydrox/simeth 30ml oral suspension PO PRN (20:34)
[2024-07-16 22:00] VITALS: BP 152/63; PULSE 94; RESP 17; TEMP 97; O2SAT 96
[2024-07-16] MEDS: gabapentin 400mg capsule PO SCH (23:02)
[2024-07-16] MEDS: ondansetron/PF 4mg/2ml inj IV PRN (23:03)
[2024-07-17 06:00] VITALS: BP 152/71; PULSE 95; RESP 16; TEMP 97.3; O2SAT 95
[2024-07-17] MEDS: LIDOcaine 5% patch TP SCH (07:20)
[2024-07-17] MEDS: metFORMIN 500mg tablet PO SCH (07:20)
[2024-07-17] MEDS: HYDROchlorothiazide 12.5mg capsule PO SCH (07:20)
[2024-07-17] MEDS: lisinopril 20mg tablet PO SCH (07:21)
[2024-07-17] MEDS: fluticasone nasal spray 16GM bottle NS SCH (07:21)
[2024-07-17 07:26] LABS: BASOPHILS % (AUTO) 0.4 % (0-1); EOSINOPHILS % (AUTO) 0 % (0-6); HEMOGLOBIN 12.5 g/dl (12.0-16.0); LYMPHOCYTES # (AUTO) 2.3 X10'3 (1.1-4.8); MEAN CORPUSCULAR HEMOGLOBIN 31.5 PG (27.0-31.0); MEAN CORPUSCULAR HGB CONC 34.6 g/dL (33.0-36.5); MEAN CORPUSCULAR VOLUME 91.1 FL (78-98); MEAN PLATELET VOLUME 7.1 FL (7.4-10.4); MONOCYTES # (AUTO) 0.6 X10'3 (0-0.9); MONOCYTES % (AUTO) 10.1 % (2-12); NEUTROPHILS # (AUTO) 3.5 X10'3 (1.8-7.7); NEUTROPHILS % (AUTO) 54.5 % (42-75); PLATELET COUNT 228 X10'3 (140-440); RED BLOOD COUNT 3.96 X10'6 (4.20-5.60); RED CELL DISTRIBUTION WIDTH 15.9 % (11.5-14.5); WHITE BLOOD COUNT 6.4 X10'3 (4.5-11.0)
[2024-07-17 07:53] LABS: ALANINE AMINOTRANSFERASE 20 U/L (12-78); ALBUMIN 3.9 G/DL (3.4-5.0); ALBUMIN/GLOBULIN RATIO 0.8 (1.1-1.5); ALKALINE PHOSPHATASE 55 IU/L (46-116); ANION GAP 7 (8-16); ASPARTATE AMINO TRANSFERASE 24 U/L (10-37); BILIRUBIN,TOTAL 0.7 MG/DL (0.1-1.0); BLOOD UREA NITROGEN 17 MG/DL (7-18); BUN/CREATININE RATIO 17.3 (10.0-20.0); CALCIUM 8.7 MG/DL (8.5-10.1); CHLORIDE 96 MMOL/L (99-107); CREATININE 0.98 MG/DL (0.40-0.90); GLUCOSE 118 MG/DL (70-104); POTASSIUM 4.1 MMOL/L (3.5-5.1); SODIUM 132 MMOL/L (135-145); TOTAL PROTEIN 8.6 G/DL (6.4-8.2); eCRCL 36 ML/MIN; eGFR 55 ML/MIN
[2024-07-17 08:00] VITALS: RESP 16; O2SAT 95
[2024-07-17 10:00] VITALS: BP 147/71; PULSE 86; RESP 16; TEMP 98.4; O2SAT 99
[2024-07-17] MEDS: QUEtiapine 25mg tablet PO PRN (12:11)
[2024-07-17 13:12] VITALS: RESP 18
== END 2024-07-17 16:00 | disposition home health service (06) | DRG 640 ==
LOC: ER 06:19 → ED HOLD 12:02 → ORTHO 4S 18:36
PROVIDERS: ADMIT Family Medicine; ATTEND Family Medicine
DX: E87.1 Hypo-osmolality and hyponatremia (principal); N17.0 Acute kidney failure with tubular necrosis; M48.56XA Collapsed vertebra, not elsewhere classified, lumbar region, initial encounter for fracture; E11.9 Type 2 diabetes mellitus without complications; I10 Essential (primary) hypertension; G40.909 Epilepsy, unspecified, not intractable, without status epilepticus; E78.5 Hyperlipidemia, unspecified; G89.29 Other chronic pain; M54.59 Other low back pain; F32.A Depression, unspecified; F03.90 Unspecified dementia, unspecified severity, without behavioral disturbance, psychotic disturbance, mood disturbance, and anxiety; M43.16 Spondylolisthesis, lumbar region; M48.07 Spinal stenosis, lumbosacral region; F20.9 Schizophrenia, unspecified; Z90.49 Acquired absence of other specified parts of digestive tract; Z85.828 Personal history of other malignant neoplasm of skin; Z87.891 Personal history of nicotine dependence
CPT/HCPCS: 36415; 71045; 72148; 72220; 80048; 80053; 82948; 83036; 83690; 83735; 83930; 84145; 85025; 87081; 93005; 97116; 97161; 97530; 99285; G0378; J1650; J1815; J2405; J7030

== ENCOUNTER 2024-08-16 21:31 | Emergency (ER) | payer MEDICARE, MEDICAID ==
[~2024-08-16] VITALS: Ht 154.9 cm; Wt 59.1 kg
[~2024-08-16 21:31] MED LIST changes: -ALEN35TA53 PO; -CITA10TA14 PO; +CITA20TA17 PO; +DENO60DI SUBCUT; +HYDR-3964 PO; -LACT-373 PO; +LISI1TAB51 PO; -LISI20TA28 PO; -NABU-139 PO; -PHEN100C12 PO
[2024-08-16] MEDS: HYDROcodone/acetaminophen 5mg/325mg tablet PO ONE (22:04)
[2024-08-16 22:34] VITALS: BP 179/99; PULSE 85; RESP 18; TEMP 98.9; O2SAT 98
== END 2024-08-16 22:36 | disposition home or self-care (01) ==
LOC: ER 21:32
DX: G89.29 Other chronic pain (principal); M54.59 Other low back pain; I10 Essential (primary) hypertension; E11.9 Type 2 diabetes mellitus without complications; F03.92 Unspecified dementia, unspecified severity, with psychotic disturbance; F20.9 Schizophrenia, unspecified; F32.A Depression, unspecified; Z90.49 Acquired absence of other specified parts of digestive tract; Z79.899 Other long term (current) drug therapy
CPT/HCPCS: 99283

== ENCOUNTER 2024-09-17 18:01 | Emergency (ER) | payer MEDICARE, MEDICAID ==
[~2024-09-17] VITALS: Ht 154.9 cm; Wt 61.0 kg
[2024-09-17 18:51] VITALS: O2SAT 97
[2024-09-17 18:56] LABS: BASOPHILS % (AUTO) 0.8 % (0-1); EOSINOPHILS # (AUTO) 0.1 X10'3 (0-0.9); EOSINOPHILS % (AUTO) 1.1 % (0-6); HEMATOCRIT 34.8 % (35.0-45.0); HEMOGLOBIN 12.1 g/dl (12.0-16.0); LYMPHOCYTES # (AUTO) 1.8 X10'3 (1.1-4.8); LYMPHOCYTES % (AUTO) 31.7 % (21-51); MEAN CORPUSCULAR HEMOGLOBIN 32.6 PG (27.0-31.0); MEAN CORPUSCULAR HGB CONC 34.8 g/dL (33.0-36.5); MEAN CORPUSCULAR VOLUME 93.6 FL (78-98); MEAN PLATELET VOLUME 7.3 FL (7.4-10.4); MONOCYTES # (AUTO) 0.6 X10'3 (0-0.9); MONOCYTES % (AUTO) 10.8 % (2-12); NEUTROPHILS # (AUTO) 3.2 X10'3 (1.8-7.7); NEUTROPHILS % (AUTO) 55.6 % (42-75); PLATELET COUNT 252 X10'3 (140-440); RED BLOOD COUNT 3.71 X10'6 (4.20-5.60); RED CELL DISTRIBUTION WIDTH 14.6 % (11.5-14.5); WHITE BLOOD COUNT 5.8 X10'3 (4.5-11.0)
[2024-09-17 19:14] LABS: ALANINE AMINOTRANSFERASE 15 U/L (12-78); ALBUMIN 4.1 G/DL (3.4-5.0); ALBUMIN/GLOBULIN RATIO 0.9 (1.1-1.5); ALKALINE PHOSPHATASE 46 IU/L (46-116); ANION GAP 5 (8-16); ASPARTATE AMINO TRANSFERASE 23 U/L (10-37); BILIRUBIN,TOTAL 0.5 MG/DL (0.1-1.0); BLOOD UREA NITROGEN 14 MG/DL (7-18); BUN/CREATININE RATIO 18.2 (10.0-20.0); CHLORIDE 90 MMOL/L (99-107); CREATININE 0.77 MG/DL (0.40-0.90); GLUCOSE 92 MG/DL (70-104); POTASSIUM 4.3 MMOL/L (3.5-5.1); SODIUM 122 MMOL/L (135-145); TOTAL CARBON DIOXIDE 27.2 MMOL/L (24-32); TOTAL PROTEIN 8.5 G/DL (6.4-8.2); eCRCL 46 ML/MIN; eGFR 73 ML/MIN
[2024-09-17 19:23] LABS: PRO BRAIN NATRIURETIC PEPTIDE 571 PG/ML (0-450)
[2024-09-17] MEDS: sodium chloride 1gm tablet PO ONE (19:34)
[2024-09-17] MEDS: HYDROcodone/acetaminophen 5mg/325mg tablet PO ONE (19:58)
[2024-09-17] MEDS ORDERED: SODI100035 PO (20:01)
[2024-09-17 20:22] VITALS: BP 203/103; PULSE 84; RESP 21; TEMP 98.1
== END 2024-09-17 20:36 | disposition home or self-care (01) ==
LOC: ER 18:02
DX: I10 Essential (primary) hypertension (principal); E87.1 Hypo-osmolality and hyponatremia; E11.9 Type 2 diabetes mellitus without complications; G89.29 Other chronic pain; F20.9 Schizophrenia, unspecified; Z79.899 Other long term (current) drug therapy; Z90.49 Acquired absence of other specified parts of digestive tract; Z95.0 Presence of cardiac pacemaker
CPT/HCPCS: 36415; 71045; 80053; 83880; 84484; 85025; 93005; 99285

== ENCOUNTER 2024-12-22 22:14 | Emergency (ER) | payer MEDICARE, MEDICAID ==
[~2024-12-22] VITALS: Ht 154.9 cm; Wt 66.0 kg
[~2024-12-22 22:14] MED LIST changes: +SODI100035 PO
--- NOTE | 2024-12-22 22:26 | ELECTROCARDIOGRAPH REPORT ---
[facility] Test Date: 2024-12-22 Test Time: 22:24:10 Pat Name: ADRIÁN MACDONALD Department: EMERGENCY ROOM Room: Gender: F Diver Helper: : 1945 Requested By: NEHEMIAS COSTELLO Order Number: [id number] Reading MD: Dr. Kalpesh Barr Measurements Intervals [place] Rate: 81 P: 39 AR: 184 QRS: -61 QRSD: 163 T: 97 QT: 433 QTc: 503 Interpretive Statements Sinus rhythm Probable left atrial enlargement Left bundle branch block Electronically Signed On 12-23-2024 6:32:[address] Kalpesh Barr Please click the below link to view image of tracing.
[2024-12-22 22:40] LABS: BASOPHILS % (AUTO) 0.5 % (0-1); EOSINOPHILS % (AUTO) 0.6 % (0-6); HEMATOCRIT 36.1 % (35.0-45.0); HEMOGLOBIN 12.7 g/dl (12.0-16.0); LYMPHOCYTES # (AUTO) 2.1 X10'3 (1.1-4.8); LYMPHOCYTES % (AUTO) 30.2 % (21-51); MEAN CORPUSCULAR HEMOGLOBIN 31.6 PG (27.0-31.0); MEAN CORPUSCULAR HGB CONC 35.1 g/dL (33.0-36.5); MEAN CORPUSCULAR VOLUME 90.1 FL (78-98); MEAN PLATELET VOLUME 7.7 FL (7.4-10.4); MONOCYTES % (AUTO) 14.2 % (2-12); NEUTROPHILS # (AUTO) 3.8 X10'3 (1.8-7.7); NEUTROPHILS % (AUTO) 54.5 % (42-75); PLATELET COUNT 195 X10'3 (140-440); RED CELL DISTRIBUTION WIDTH 14.1 % (11.5-14.5)
--- NOTE | 2024-12-22 22:45 | Physician Documentation ---
History of Present Illness ~ Chief Complaint: Dizziness Stated Complaint: DIZZINESS Time Seen by MD: 22:32 Primary Medical Doctor: HARRY Mode of Arrival: EMS HPI Patient presents to the emergency room with chief complaint of headache and high blood pressures. She was seen by physical therapist earlier today and was told that her blood pressure was high at 160. She also was not feeling very well at that time he has developed a headache which has since improved from a 9/10 to 2/10 currently. No fevers. Patient just had hydrochlorothiazide added to her lisinopril this past week by her primary care. She states her blood pressures typically range around 160 systolic. Medication Reconciliation Allergies: Coded Allergies: No Known Allergies (Unverified , 12/22/24) Scheduled Amlodipine Besylate (Amlodipine Besylate), 1 TAB PO DAILY Atorvastatin Calcium (Atorvastatin Calcium), 1 TABLET PO HS, (Reported) Buspirone Hcl* (Buspar*), 2 TAB PO TID, (Reported) Citalopram Hydrobromide (Citalopram HBr), 1 TAB PO HS, (Reported) Cyclosporine (Restasis), 1 DROP EACHEYE BID, (Reported) Denosumab (Prolia), 1 SYR SUBCUT [id number], (Reported) Fluticasone Propionate (Flonase), 2 SPRAYS BOTHNARES DAILY, (Reported) Gabapentin (Gabapentin), 1 TAB PO Q8H, (Reported) Lidocaine (Lidoderm), 1 PATCH TOP DAILY Lisinopril/Hydrochlorothiazide (Lisinopril-Hctz 20-12.5 mg Tab), 1 TAB PO DAILY, (Reported) Magnesium Citrate (Magnesium Citrate), 296 ML PO ONCE Metformin HCl (Metformin HCl), 1 TAB PO DAILY, (Reported) Mirtazapine (Mirtazapine), 1 TAB PO HS, (Reported) Quetiapine Fumarate (Quetiapine Fumarate), 1 TAB PO HS, (Reported) Sodium Chloride (Sodium Chloride), 1 TAB PO Q12H Sodium Chloride (SODIUM CHLORIDE tablet), 1 TAB PO Q12H Scheduled PRN Cetirizine HCl (Cetirizine HCl), 1 TAB PO DAILY PRN for NASAL ALLERGIES, (Reported) Hydrocodone Bit/Acetaminophen (Hydrocodon-Acetaminophen 5-325), 1 TAB PO Q4H PRN for MODERATE PAIN 4-6 Quetiapine Fumarate (Quetiapine Fumarate), 1 TAB PO DAILY PRN for for anxiety/agitation, (Reported) Past Medical History Past Medical History: Dementia, Seizures, Hypertension, Diabetes, Chronic Pain, Chronic Back Pain, Cellulitis, Depression, Psychosis, Schizophrenia Past Surgical History: cholecystectomy Patient History: FH: heart disease FATHER FH: rheumatoid arthritis MOTHER Alcohol Use: None Lives with: Family Lives In: Home Occupation: retired Review of Systems ROS All review of systems negative except as per HPI Physical Exam Vital Signs: Temperature: 98.1, Source: Oral, Heart Rate: 82, Respiratory Rate: 16, BP: 207/96, Pulse Oximetry: 100, Weight: 66.000 Oxygen Flow Rate: 0 Physical Exam General: Patient is awake, alert, oriented x4 in no acute distress Head: Normocephalic and atraumatic. Eyes: Conjunctival normal. EOMI. PERRL. ENT: Mucous membranes moist. No tenderness to palpation to temporal arteries Neck: Supple, trachea is midline. No meningismus Chest: Clear to auscultation bilaterally without rales, rhonchi, or wheezes. There is no accessory muscle use or retractions. Cardiac: RRR without murmurs, gallops, or rubs. Abd: Soft, nondistended, nontender, with normoactive bowel sounds. No guarding, rebound, or rigidity. Neuro: Cranial nerves II-XII grossly intact. No focal neuro deficits. Patient ambulating without difficulty. Progress Results/Orders Results/Orders Orders - SWAPNIL ORTIZ MD Chest,Single View (12/22/24 22:16) Monitor (12/22/24 22:16) Saline Lock (12/22/24 22:16) Oxygen (12/22/24 22:16) Hs Troponin I W Calculations (12/23/24 00:16) Hs Troponin I W Calculations (12/23/24 01:16) Ct Head (12/22/24 22:55) Completed Orders - SWAPNIL ORTIZ MD Chest,Single View (12/22/24 22:16) Cbc/Diff (12/22/24 22:16) PBNP (12/22/24 22:16) Electrocardiogram (12/22/24 22:16) CMP (12/22/24 22:16) Hs Troponin I W Calculations (12/22/24 22:16) Ct Head (12/22/24 22:55) Hydralazine Inj. (Apresoline Inj.) (12/22/24 22:35) Hydrocodone/Apap 10/325 ([place]sea 10/325mg (12/22/24 22:45) Sodium Chloride Tablet (Sodium Chloride (12/22/24 23:35) Amlodipine Tablet (Norvasc Tablet) (12/22/24 23:35) Ketorolac Trometh 15mg/Ml Vial (Toradol (12/22/24 23:40) Medications Received in ER Medications (Trade) Dose Ordered Sig/Rain Route PRN Reason Start Time Stop Time Status Last Admin Dose Admin (Apresoline inj.) 20 mg ONCE ONCE IV 12/22/24 22:35 12/22/24 22:36 DC 12/22/24 23:06 20 MG ([place]helsea 10/325mg tab) 1 tab ONCE ONCE PO 12/22/24 22:45 12/22/24 22:46 DC 12/22/24 23:05 1 TAB Vital Signs 12/22/24 12/22/24 12/22/24 12/22/24 22:20 22:30 23:05 23:06 Temp 98.1 Pulse 82 80 Resp 16 16 16 B/P (MAP) 207/96 Pulse Ox 100 O2 Flow Rate 0 Laboratory Tests Test 12/22/24 22:26 White Blood Count 7.0 Red Blood Count 4.00 L Hemoglobin 12.7 Hematocrit 36.1 Mean Corpuscular Volume 90.1 Mean Corpuscular Hemoglobin 31.6 H Mean Corpuscular Hemoglobin Concent 35.1 Red Cell Distribution Width 14.1 Platelet Count 195 Mean Platelet Volume 7.7 Neutrophils (%) (Auto) 54.5 Lymphocytes (%) (Auto) 30.2 Monocytes (%) (Auto) 14.2 H Eosinophils (%) (Auto) 0.6 Basophils (%) (Auto) 0.5 Neutrophils # (Auto) 3.8 Lymphocytes # (Auto) 2.1 Monocytes # (Auto) 1.0 H Eosinophils # (Auto) 0.0 Basophils # (Auto) 0.0 CBC Comment Sodium Level 121 L Potassium Level 3.7 Chloride Level 84 L Carbon Dioxide Level 32.2 H Anion Gap 5 L Blood Urea Nitrogen 19 H Creatinine 0.87 Estimated GFR/1.73 m2 63 BUN/Creatinine Ratio 21.8 H Glucose Level 100 Calcium Level 9.1 Total Bilirubin 0.4 Aspartate Amino Transf (AST/SGOT) 26 Alanine Aminotransferase (ALT/SGPT) 21 Alkaline Phosphatase 54 Troponin I High Sensitivity 9 Pro-B-Type Natriuretic Peptide 119 Total Protein 7.9 Albumin 4.0 Globulin 3.9 Albumin/Globulin Ratio 1.0 L Chemistry Comments EKG/XRAY/CT/US/VASC/MRI EKG : Additional Comment EKG interpreted by myself shows time of 09/24/2023, rate 81, sinus rhythm, left axis deviation, left bundle-branch block, nonspecific ST-T changes Chest X-Ray : Additional Comments One view chest x-ray interpreted by myself shows no effusions, no infiltrates and normal cardiac silhouette Medical Decision Making Findings Patient presented to the emergency room with headache and high blood pressures. Differentials include but are not limited to intracranial bleed, meningitis, end-organ damage, hypertensive emergency therefore emergent labs and imaging indicated. CT scan reassuring. Patient's blood pressure that has responding to therapy and there was no evidence of end-organ damage. No meningismus and I do not suspect meningitis. That has patient's states her blood pressure is around 160 I will be adding amlodipine to her lisinopril hydrochlorothiazide. ER precautions discussed as well as the need to keep blood pressure log. Departure Disposition: HOME / SELF CARE / HOMELESS Impression: Primary Impression: Uncontrolled hypertension Additional Impression: Hyponatremia Condition: Improved Discharge Instructions: Hypertension, Adult, [id number], Hyponatremia, [id number] Additional Instructions: Begin a blood pressure log and bring this to your doctor's appointment upon the next visit. Your sodium was low. This has happened previously. I will put her on a small course of sodium and you were to follow up with your doctor for re- evaluation of your labs Referrals: NO PRIMARY CARE PROVIDER (PCP) Prescriptions Sodium Chloride (SODIUM CHLORIDE tablet) 1,000 Mg Tablet 1 TAB PO Q12H, #10 TAB 0 Refills Prov: SWAPNIL ORTIZ MD 12/22/24 Amlodipine Besylate (Amlodipine Besylate) 5 Mg Tablet 1 TAB PO DAILY for 30 Days, #30 TAB 0 Refills Prov: SWAPNIL ORTIZ MD 12/22/24 Education Educated: Patient Educated regarding: diagnosis, treatment, need for follow up Signature Scribe Signature: No scribe Attestation: The note accurately reflects work and decisions made by me.Swapnil Ortiz MD 12/22/24 23:39 SWAPNIL ORTIZ MD December 22, 2024 22:45
[2024-12-22 22:47] LABS: ALANINE AMINOTRANSFERASE 21 U/L (12-78); ALKALINE PHOSPHATASE 54 IU/L (46-116); ANION GAP 5 (8-16); ASPARTATE AMINO TRANSFERASE 26 U/L (10-37); BILIRUBIN,TOTAL 0.4 MG/DL (0.1-1.0); BLOOD UREA NITROGEN 19 MG/DL (7-18); BUN/CREATININE RATIO 21.8 (10.0-20.0); CALCIUM 9.1 MG/DL (8.5-10.1); CHLORIDE 84 MMOL/L (99-107); CREATININE 0.87 MG/DL (0.40-0.90); GLUCOSE 100 MG/DL (70-104); POTASSIUM 3.7 MMOL/L (3.5-5.1); SODIUM 121 MMOL/L (135-145); TOTAL CARBON DIOXIDE 32.2 MMOL/L (24-32); TOTAL PROTEIN 7.9 G/DL (6.4-8.2); eCRCL 41 ML/MIN; eGFR 63 ML/MIN
[2024-12-22 22:56] LABS: PRO BRAIN NATRIURETIC PEPTIDE 119 PG/ML (0-450)
--- NOTE | 2024-12-22 23:02 | RADIOLOGY REPORT ---
CT CT HEAD INDICATION: headache, HTN COMPARISON: CT CT HEAD on DOS: 06/26/24, CT CT HEAD on DOS: 11/20/23, CT CT HEAD on DOS: 11/08/23 TECHNIQUE: CT of the head without intravenous contrast. RADIATION DOSE: CTDIvol: mGy, DLP: mGy*cm FINDINGS: There is no evidence of intracranial hemorrhage, infarct, extra-axial collection, mass effect, midli ne shift, herniation or hydrocephalus. Chronic white matter microvascular ischemic changes. Moderate ventricular enlargement related to cerebral volume loss. Visualized paranasal sinuses and mastoid ai r cells are clear. Soft tissues and osseous structures are unremarkable. IMPRESSION: No acute intracranial abnormality identified. Chronic white matter microvascular ischemic changes and cerebral volume loss. No significant change compared to the prior CT scan from June 2024.
[2024-12-22] MEDS: HYDROcodone/acetaminophen 10/325mg tab PO ONE (23:05)
[2024-12-22] MEDS: hydrALAZINE 20mg/ml inj. IV ONE (23:06)
--- NOTE | 2024-12-22 23:12 | RADIOLOGY REPORT ---
CHEST RADIOGRAPH Indication: CP Technique: Single frontal view of the chest was obtained COMPARISON: DI CHEST,SINGLE VIEW on DOS: 09/17/24 FINDINGS: Lines and Tubes: None Lungs: Clear Pleura: No effusion. No pneumothorax. Cardiomediastinal contours: Unremarkable IMPRESSION: No acute disease.
[2024-12-22] MEDS ORDERED: AMLO5TAB16 PO (23:37)
[2024-12-22] MEDS ORDERED: SODI1TAB2 PO (23:51)
[2024-12-22] MEDS: sodium chloride 1gm tablet PO ONE (23:56)
[2024-12-22] MEDS: ketorolac trometh 15mg/ml vial 15 MG/ML ML IV ONE (23:56)
[2024-12-22] MEDS: amLODIPine 5mg tablet PO ONE (23:57)
[2024-12-22 23:59] VITALS: BP 152/73; PULSE 98; RESP 18; TEMP 98.1; O2SAT 100
== END 2024-12-23 00:08 | disposition home or self-care (01) ==
LOC: ER 22:15
DX: I10 Essential (primary) hypertension (principal); E87.1 Hypo-osmolality and hyponatremia; E11.9 Type 2 diabetes mellitus without complications; F03.92 Unspecified dementia, unspecified severity, with psychotic disturbance; F20.9 Schizophrenia, unspecified; Z90.49 Acquired absence of other specified parts of digestive tract
CPT/HCPCS: 36415; 70450; 71045; 80053; 83880; 84484; 85025; 93005; 96374; 96375; 99285; J0360; J1885